=== PATIENT | male | born 1960 | race Caucasian/White ===

== ENCOUNTER 2016-12-29 13:33 | Emergency (ER) | payer BC | END 2016-12-29 13:40 | disposition left against medical advice (07) | LOC: MW.ED 13:33 | DX: Z53.21 Procedure and treatment not carried out due to patient leaving prior to being seen by health care provider (principal) ==

== ENCOUNTER 2017-10-07 18:41 | Emergency (ER) | payer BC ==
--- NOTE | 2017-10-07 19:55 | EDM.PDOC ---
ED HPI GENERAL MEDICAL PROBLEM - General Chief Complaint: Drug or Alcohol Abuse Stated Complaint: INTOXICATION Time Seen by Provider: 10/07/17 19:34 - History of Present Illness INITIAL COMMENTS - FREE TEXT/NARRATIVE: HISTORY AND PHYSICAL: History of present illness: Patient 57-year-old white male presented to medical screening exam he was drinking tonight and brought by ambulance for intoxication family is here with amount states he's markedly improved patient's awake he is alert he is able ambulate and has no other complaints is requesting discharge patient has family with him willing and able to assist with discharge Review of systems: As per history of present illness and below otherwise all systems reviewed and negative. Past medical history: As per history of present illness and as reviewed below otherwise noncontributory. Surgical history: As per history of present illness and as reviewed below otherwise noncontributory. Social history: No reported history of drug or alcohol abuse. Family history: As per history of present illness and as reviewed below otherwise noncontributory. Physical exam: HEENT: Atraumatic, normocephalic, pupils reactive, negative for conjunctival pallor or scleral icterus, mucous membranes moist, throat clear, neck supple, nontender, trachea midline. Lungs: Clear to auscultation, breath sounds equal bilaterally, chest nontender. Heart: S1S2, regular, negative for clicks, rubs, or JVD. Abdomen: Soft, nondistended, nontender. Negative for masses or hepatosplenomegaly. Negative for costovertebral tenderness. Pelvis: Stable nontender. Genitourinary: Deferred. Rectal: Deferred. Extremities: Atraumatic, negative for cords or calf pain. Neurovascular unremarkable. Neuro: Awake, alert, oriented. Follows command moves all extremities ambulates limited nonfocal exam Diagnostics: None Therapeutics: None Impression: #1 alcohol abuse #2 medical screening exam Definitive disposition and diagnosis as appropriate pending reevaluation and review of above. - Related Data Allergies Allergy/AdvReac Type Severity Reaction Status Date / Time No Known Allergies Allergy Verified 10/07/17 18:59 Home Meds: Home Meds Aspirin [Halfprin] 1 tab PO DAILY 10/05/14 [History] Dexlansoprazole [Dexilant] 1 tab PO DAILY 10/05/14 [History] Fenofibrate Nanocrystallized [Fenofibrate] 1 tab PO DAILY 10/05/14 [History] Fluticasone Propionate [Flonase] 1 spray INH DAILY 10/05/14 [History] Hydrochlorothiazide [Hydrochlorothiazide] 1 tab PO DAILY 10/05/14 [History] Loratadine [Allergy] 1 tab PO DAILY 10/05/14 [History] Metoprolol Tartrate 0.5 tab PO BID 10/05/14 [History] Multivitamin [Multi Vitamin Daily] 1 tab PO DAILY 10/05/14 [History] Rosuvastatin [Crestor] 1 tab PO DAILY 10/05/14 [History] Social & Family History - Family History Family Medical History: Noncontributory - Tobacco Use Smoking Status *Q: Never Smoker - Alcohol Use Days Per Week of Alcohol Use: 1 - Recreational Drug Use Recreational Drug Use: No Drug Use in Last 12 Months: No ED ROS GENERAL - Review of Systems Review Of Systems: ROS reveals no pertinent complaints other than HPI. ED EXAM, GENERAL - Physical Exam Exam: See Below (See dictation) Course - Vital Signs Last Recorded V/S: Last Vital Signs Temp 35.8 C 10/07/17 18:53 Pulse 100 10/07/17 18:53 Resp 18 10/07/17 18:53 BP 137/78 10/07/17 18:53 Pulse Ox 98 10/07/17 18:53 Departure - Departure Time of Disposition: 19:54 Disposition: Home, Self-Care 01 Clinical Impression: Alcohol abuse - Discharge Information Referrals: PCP,None [Primary Care Provider] - Additional Instructions: The following information is given to patients seen in the emergency department who are being discharged to home. This information is to outline your options for follow-up care. We provide all patients seen in our emergency department with a follow-up referral. The need for follow-up, as well as the timing and circumstances, are variable depending upon the specifics of your emergency department visit. If you don't have a primary care physician on staff, we will provide you with a referral. We always advise you to contact your personal physician following an emergency department visit to inform them of the circumstance of the visit and for follow-up with them and/or the need for any referrals to a consulting specialist. The emergency department will also refer you to a specialist when appropriate. This referral assures that you have the opportunity for followup care with a specialist. All of these measure are taken in an effort to provide you with optimal care, which includes your followup. Under all circumstances we always encourage you to contact your private physician who remains a resource for coordinating your care. When calling for followup care, please make the office aware that this follow-up is from your recent emergency room visit. If for any reason you are refused follow-up, please contact the [facility] emergency department at and asked to speak to the emergency department charge nurse. Follow-up primary medical doctor in [facility] as discussed stop drinking return as needed as discussed
== END 2017-10-07 20:07 | disposition home or self-care (01) ==
LOC: MW.ED 18:41
DX: F10.129 Alcohol abuse with intoxication, unspecified (principal); Z79.82 Long term (current) use of aspirin; Z79.899 Other long term (current) drug therapy
CPT/HCPCS: 99282; 99283

== ENCOUNTER 2019-02-08 08:43 | Emergency (ER) | payer BC ==
[2019-02-08] MEDS ORDERED: Diphtheria,Pertussis(Acell),Tetanus Vaccine 0.5 ML Syringe IM ONE (08:50)
[2019-02-08] MEDS ORDERED: Amoxicillin/Clavulanate K 875-125 MG Tab PO ONE (08:51)
[2019-02-08] MEDS ORDERED: Bacitracin Oint 1 GM U/D Packet TOP ONE (08:54)
--- NOTE | 2019-02-08 08:54 | EDM.PDOC ---
ED HPI GENERAL MEDICAL PROBLEM - General Chief Complaint: Upper Extremity Injury/Pain Stated Complaint: SICK Time Seen by Provider: 02/08/19 08:46 - History of Present Illness INITIAL COMMENTS - FREE TEXT/NARRATIVE: HISTORY AND PHYSICAL: History of present illness: The patient is a 58-year-old male who follows in our family practice clinic and has a history of hypercholesterolemia and hypertension who presents with 3 days of right thumb pain and swelling just to the side of his fingernail. 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 He did try to manipulate and pull the area yesterday and seems to have made it worse. He has no other systemic complaints and no other complaints in his right hand or fingers. He is left-hand dominant. Review of systems: As per history of present illness and below otherwise all systems reviewed and negative. Past medical history: As per history of present illness and as reviewed below otherwise noncontributory. Surgical history: As per history of present illness and as reviewed below otherwise noncontributory. Social history: No reported history of drug or alcohol abuse. Family history: As per history of present illness and as reviewed below otherwise noncontributory. Physical exam: HEENT: Atraumatic, normocephalic, negative for conjunctival pallor or scleral icterus, mucous membranes moist, throat clear, neck supple, nontender, trachea midline. Lungs: Clear to auscultation, breath sounds equal bilaterally, chest nontender. Heart: S1S2, regular rate and rhythm no overt murmurs Abdomen: Soft, nondistended, nontender. Pelvis: Deferred. Genitourinary: Deferred. Rectal: Deferred. Extremities: Atraumatic, and full range of motion of all extremities with the exception of the right thumb where there is soft tissue swelling and fluctuance noted to the radial aspect of the fingernail with a scab-like area on the surface but the nail and nailbed are intact. There is soft tissue swelling at the surround the patient is able to flex and extend as well as opposable thumb. There is no streaking up the arm and no axillary adenopathy Neurovascular unremarkable. Neuro: Awake, alert, oriented. Cranial nerves II through XII unremarkable. Cerebellum unremarkable. Motor and sensory unremarkable throughout. Exam nonfocal. Diagnostics: X-ray right thumb Therapeutics: Tdap, Augmentin, lidocaine without epinephrine for procedure Procedure note: After explained to the patient that I would be doing a digital block with lidocaine without epinephrine and potentially trying to drain some of the fluid. He states understanding and the area was prepped simply with betadine and the digital block was placed. Using an 11 blade scalpel and incision was made at the radial base of the nailbed and a moderate amount of thick pus was suppressed. There were no complications and the patient tolerated the procedure well. Bacitracin and a tube gauze was applied Impression: Right thumb paronychia Definitive disposition and diagnosis as appropriate pending reevaluation and review of above. - Related Data Allergies Allergy/AdvReac Type Severity Reaction Status Date / Time No Known Allergies Allergy Verified 10/07/17 18:59 Home Meds: Home Meds Aspirin [Halfprin] 1 tab PO DAILY 10/05/14 [History] Dexlansoprazole [Dexilant] 1 tab PO DAILY 10/05/14 [History] Fenofibrate Nanocrystallized [Fenofibrate] 1 tab PO DAILY 10/05/14 [History] Fluticasone Propionate [Flonase] 1 spray INH DAILY 10/05/14 [History] Hydrochlorothiazide 1 tab PO DAILY 10/05/14 [History] Loratadine [Allergy] 1 tab PO DAILY 10/05/14 [History] Metoprolol Tartrate 0.5 tab PO BID 10/05/14 [History] Multivitamin [Multi Vitamin Daily] 1 tab PO DAILY 10/05/14 [History] Rosuvastatin [Crestor] 1 tab PO DAILY 10/05/14 [History] Social & Family History - Family History Family Medical History: Noncontributory Review of Systems - Review of Systems Review Of Systems: ROS reveals no pertinent complaints other than HPI. ED EXAM, GENERAL - Physical Exam Exam: See Below (see dictation) Course - Vital Signs Last Recorded V/S: Last Vital Signs Temp 35.6 C 02/08/19 09:09 Pulse 60 02/08/19 09:09 Resp 18 02/08/19 09:09 BP 127/60 02/08/19 09:09 Pulse Ox 95 02/08/19 09:09 - Orders/Labs/Meds Orders: Active Orders 24 hr Category Date Time Status Communication Order [RC] STAT Care 02/08/19 08:54 Active Vaccines to be Administered [RC] PER UNIT ROUTINE Care 02/08/19 08:51 Active Fingers Thumb Rt F5 [CR] Stat Exams 02/08/19 08:50 Taken Meds: Medications Discontinued Medications Generic Name Dose Route Start Last Admin Trade Name Pat PRN Reason Stop Dose Admin Amoxicillin/Clavulanate Potassium 1 tab 02/08/19 08:51 Augmentin 875 Mg/125 Mg PO 02/08/19 08:52 ONETIME ONE Bacitracin 1 dose 02/08/19 08:54 Bacitracin Oint 1 Gm TOP 02/08/19 08:55 ONETIME ONE Diphtheria/Tetanus/Acell Pertussis 0.5 ml 02/08/19 08:50 Adacel IM 02/08/19 08:51 .ONCE ONE Lidocaine HCl 5 ml 02/08/19 08:50 Xylocaine-Mpf 1% INJECT 02/08/19 08:51 ONETIME ONE Departure - Departure Time of Disposition: 09:46 Disposition: Home, Self-Care 01 Condition: Good Clinical Impression: Paronychia of thumb, right - Discharge Information Referrals: PCP,Unknown [Primary Care Provider] - Forms: ED Department Discharge Additional Instructions: The following information is given to patients seen in the emergency department who are being discharged to home. This information is to outline your options for follow-up care. We provide all patients seen in our emergency department with a follow-up referral. The need for follow-up, as well as the timing and circumstances, are variable depending upon the specifics of your emergency department visit. If you don't have a primary care physician on staff, we will provide you with a referral. We always advise you to contact your personal physician following an emergency department visit to inform them of the circumstance of the visit and for follow-up with them and/or the need for any referrals to a consulting specialist. The emergency department will also refer you to a specialist when appropriate. This referral assures that you have the opportunity for followup care with a specialist. All of these measure are taken in an effort to provide you with optimal care, which includes your followup. Under all circumstances we always encourage you to contact your private physician who remains a resource for coordinating your care. When calling for followup care, please make the office aware that this follow-up is from your recent emergency room visit. If for any reason you are refused follow-up, please contact the [facility] emergency department at and ask to speak to the emergency department charge nurse. [facility] Specialty clinic-Plastic Surgery and Hand Surgery Professional Building [address] [place] [id number] [facility] Primary care- Internal Medicine and Family [facility] [address] [place] [id number] Keep the dressing that is placed in the ED on the next 24 hours then remove and cleanse with mild soap and water pat dry and apply bacitracin or Neosporin. Do not use Band-Aids and if you need to cover the area please use breathable gauze. Expect more drainage over the next few hours. Take antibiotics as directed and try to interrupt your habit nailbiting as we discussed. Return to ER as needed and as discussed. May follow up with your provider in the clinic or one of ours or hand specialist as you choose using resources given to above. - My Orders Last 24 Hours: My Active Orders 02/08/19 08:50 Fingers Thumb Rt F5 [CR] Stat 02/08/19 08:51 Vaccines to be Administered [RC] PER UNIT ROUTINE 02/08/19 08:54 Communication Order [RC] STAT - Assessment/Plan Last 24 Hours: My Active Orders 02/08/19 08:50 Fingers Thumb Rt F5 [CR] Stat 02/08/19 08:51 Vaccines to be Administered [RC] PER UNIT ROUTINE 02/08/19 08:54 Communication Order [RC] STAT
--- NOTE | 2019-02-08 10:06 | CR ---
INDICATION: Evaluate for foreign body TECHNIQUE: Three portable radiographs the right thumb COMPARISON: None FINDINGS AND IMPRESSION: There is no radiopaque foreign body. No fracture. Normal alignment. No significant soft tissue swelling. Dictated by Rosanna Lucas MD @ 02/08/2019 10:04:35 AM Dictated by: Rosanna Lucas MD @ 02/08/2019 10:04:46 (Electronically Signed)
== END 2019-02-08 10:07 | disposition home or self-care (01) ==
LOC: MW.ED 08:43
DX: L03.011 Cellulitis of right finger (principal); Z23 Encounter for immunization; Z79.82 Long term (current) use of aspirin
CPT/HCPCS: 10060; 73140; 90471; 90715; 99283; A9270; J2001